=== PATIENT | male | born 1960 ===

== ENCOUNTER → 2024-07-09 15:38 | Outpatient (REF) | payer BC, SELFPAY | LOC: RCS 15:38 | PROVIDERS: ATTENDING PHYSICIAN Internal Medicine Cardiovascular Disease; FAMILY PHYSICIAN Internal Medicine | DX: R55 Syncope and collapse (principal); Q21.12 Patent foramen ovale | CPT/HCPCS: 93306 ==

== ENCOUNTER 2024-10-06 06:22 | Emergency (ER) | payer BC, SELFPAY ==
[2024-10-06 06:24] VITALS: BP 137/85
--- NOTE | 2024-10-06 07:12 | ED.GENMED ---
History of Present Illness
<Natalee Soliman MD, Resident - Last Filed: 10/06/24 07:23>
General
Chief Complaint: Musculo-Skeletal Complaint
Time Seen by Provider: 10/06/24 06:53
History of Present Illness
History of Present Illness:
63 y/o male with past medical history of hypertension, hyperlipidemia, and prostate cancer s/p prostatectomy presenting to the ED with right upper thigh pain. Pt notes pain started a few day ago and is not constant. No aggravating or alleviating
factors. Denies trauma/injury to the area, radiating pain, systemic symptoms, extreme physical activity.
Past History
<Natalee Soliman MD, Resident - Last Filed: 10/06/24 07:23>
Past History
ED Past Medical History: Cancer (prostate ca), HTN and Hypercholesterolemia
ED Past Surgical History: Orthopedic (left shoulder rotator cuff surgery, left knee surgery), Urological (prostatectomy) and Other (inguinal hernia repair)
Review of Systems
<Natalee Soliman MD, Resident - Last Filed: 10/06/24 07:23>
Review of Systems
Constitutional: Reports no symptoms
EENT: Reports no symptoms
Respiratory: Reports no symptoms
Cardiac: Reports no symptoms
ABD/GI: Reports no symptoms
: Reports no symptoms
Musculoskeletal: Reports muscle pain
Skin: Reports no symptoms
Neurological: Reports no symptoms
Endocrine: Reports no symptoms
Hematologic/Lymphatic: Reports no symptoms
Psychiatric: Reports no symptoms
Phy Exam
<Natalee Soliman MD, Resident - Last Filed: 10/06/24 07:23>
Physical Exam
Physical Exam:
GENERAL: Alert, in no apparent distress
EYE: pupils equal and reactive
NECK: Supple, no significant adenopathy.
ENT: o/p clr, mmm.
CARDIAC: Regular rate and rhythm .
LUNGS: Clear breath sounds bilaterally, no acute respiratory distress, no wheezes/rales/rhonchi
ABDOMEN: Soft, without focal tenderness, no r/g, no cvat
NEUROLOGICAL: Alert and oriented, no focal neuro deficits
SKIN: Warm and dry, skin intact.
MUSCULOSKELETAL: No edema, well perfused. Distal pulses present. No swelling, erythema, warmth on right upper thigh. No focal tenderness. No size difference between the right and left lower extremity.
PSYCH: Normal and appropriate interaction.
Course
<Natalee Soliman MD, Resident - Last Filed: 10/06/24 07:23>
Orders/Labs/Results
Orders:
Orders
10/06/24 07:09
US Periph Venous LOWER Ext RT Urgent
Comment:
Reason For Exam: right leg pain (thigh)
Vital Signs
Initial and Last Documented VS:
Initial Vital Signs
Temp Pulse Resp BP Pulse Ox
36.6 C 81 18 137/85 96
10/06/24 06:24 10/06/24 06:24 10/06/24 06:24 10/06/24 06:24 10/06/24 06:24
Last Documented Vital Signs
Temp Pulse Resp BP Pulse Ox
36.6 C 81 18 137/85 96
10/06/24 06:24 10/06/24 06:24 10/06/24 06:24 10/06/24 06:24 10/06/24 06:24
<Arsenio Leung MD - Last Filed: 10/06/24 08:16>
Orders/Labs/Results
Orders:
Orders
10/06/24 07:09
US Periph Venous LOWER Ext RT Urgent
Comment:
Reason For Exam: right leg pain (thigh)
Vital Signs
Initial and Last Documented VS:
Initial Vital Signs
Temp Pulse Resp BP Pulse Ox
36.6 C 81 18 137/85 96
10/06/24 06:24 10/06/24 06:24 10/06/24 06:24 10/06/24 06:24 10/06/24 06:24
Last Documented Vital Signs
Temp Pulse Resp BP Pulse Ox
36.6 C 81 18 137/85 96
10/06/24 06:24 10/06/24 06:24 10/06/24 06:24 10/06/24 06:24 10/06/24 06:24
<Natalee Soliman MD, Resident - Last Filed: 10/06/24 07:23>
MDM/Problems Addressed
Differential Diagnosis Includes:
Musculoskeletal pain
DVT
Radiculopathy
Cellulitis
MDM/Problems Addressed:
- Right lower extremity ultrasound
- Pain management
<Natalee Soliman MD, Resident - Last Filed: 10/06/24 07:23>
*Critical Care Note
Total Time (30-74mins, 75-104mins- exclusive of procedures): Not Applicable
ED Attending Note
<Natalee Soliman MD, Resident - Last Filed: 10/06/24 07:23>
-
Portions of this chart may have been created with voice recognition software.� Occasional wrong word or��sound alike� substitutions may have occurred due to the inherent limitations of voice recognition software.
<Arsenio Leung MD - Last Filed: 10/06/24 08:16>
ED Attending Note
Patient seen and examined by attending physician: Yes
I performed a history and physical exam of patient and discussed management with resident, I reviewed resident's note and agree with documented findings and plan of care.: Yes
ED Attending Note:
I have seen and evaluated the patient with a [id number] encounter. I have spoken to the resident and involved in the medical history, the physical exam, medical decision making.
Evaluation and management service: agree unless noted differently below.
Results interpretation: agree unless noted differently below.
Focused HPI: 63-year-old male with a past medical history of hypertension, hyperlipidemia presents to the emergency room for evaluation of right thigh pain. He reports onset of symptoms about 6 days ago. Symptoms are intermittent. Patient reports
pain right anterior medial thigh. He palpates/points to the area and it seems to be the medial margin of his quadricep. Symptoms are not worse with exertion, no clear trigger noted. He denies any direct injury or trauma that he can recall. He
has not noticed any skin changes or redness. He denies any swelling in the leg. He denies any distal pain in the leg. No numbness or paresthesias. He was concerned potentially for a blood clot and came to the ER for assessment. He denies any
history of DVT, denies any recent travel/flights. He denies any other complaints including fever, chest pain, shortness of breath.
Physical exam: Awake alert not in distress. Vital signs normal. He has some tenderness along the medial margin of the quadriceps right mid thigh. No erythema, warmth, fluctuance, crepitus. No palpable cord. He has strong palpable femoral,
popliteal, PT, DP pulses in the lower extremities bilaterally and pulses are symmetric. He has no edema in the lower extremities bilaterally. His distal lower extremities are warm and well-perfused with brisk capillary refill, pink skin, hair
present on the lower legs and feet.
Medical Decision Makin-year-old male presents to the emergency room for evaluation of atraumatic pain in the right medial thigh. He was concerned potentially for blood clot. His pain and tenderness seems to be along the margin of the
quadricep. Suspect likely overuse or occult strain; clinical suspicion for vascular pathology is very low. Will send for an ultrasound to rule out DVT. No indication for x-ray: with no traumatic episode and patient weightbearing very low
suspicion for femoral fracture. His vascular exam is reassuring very low clinical suspicion for any peripheral vascular disease/claudication and symptoms are not exertional. If DVT study negative plan to discharge with expectant
management�Tylenol/Motrin as needed, rest and PCP follow-up.
Discharge Plan
Departure
Referrals:
NONE,* [Family Provider] -
Interventions
Interventions:
*Risk Screen - Suicide Last Done: 10/06/24 06:24
*General Assessment Last Done: 10/06/24 07:11
*Neglect/Abuse Screening Last Done: 10/06/24 07:01
ED- Fall Risk Assessment Last Done: 10/06/24 07:00
*ED COVID-19 Vaccine History Last Done: 10/06/24 06:29
ED-Musculoskeletal Assessment Last Done: 10/06/24 07:00
Discharge Date and Time
Print Language: ESTONIAN
[2024-10-06 08:22] VITALS: BP 131/79
== END 2024-10-06 08:31 | disposition home or self-care (01) ==
LOC: EMR 06:22
PROVIDERS: EMERGENCY PHYSICIAN Emergency Medicine
DX: M79.651 Pain in right thigh (principal); I10 Essential (primary) hypertension; E78.00 Pure hypercholesterolemia, unspecified; Z85.46 Personal history of malignant neoplasm of prostate; Z90.79 Acquired absence of other genital organ(s)
CPT/HCPCS: 99284; 93971